=== PATIENT | female | born 1990 | race Caucasian/White ===

== ENCOUNTER 2020-12-13 09:00 | Outpatient (RCR) | payer OTHER, SELFPAY ==
--- NOTE | 2020-09-08 17:37 | PT.OIE ---
Current Diagnoses Low back pain (09/07/20) Encounter for supervision of normal , unspecified, unspecified trimester (09/07/20) Visit Care Team Role Provider Type SELENA Limon Attending Provider Non-Staff Referring Provider Specialty: Obstetrics Address: [address] [place] [address] [address], [place], [address] Email: Physical Therapy Initial Evaluation PT-OP-A Visit Information Start: 09/07/20 09:42 Freq: Status: Active Protocol: Document 09/07/20 09:45 [facility] (Rec: 09/07/20 10:03 [facility] [id number]) Out-Patient Physical Therapy Visit Information Visit Information Visit Type Initial Evaluation Visit Start Time 09:45 Visit Stop Time 10:30 Total Visit Minutes 45 Visit Number 1 Evaluation Information Evaluation Date 09/07/20 PT-OP-B Current Condition Start: 09/07/20 09:42 Freq: Status: Active Protocol: Document 09/07/20 09:45 [facility] (Rec: 09/07/20 10:03 [facility] [id number]) Current Condition History of Current Condition Onset Date with History of Current Condition Sri is a 30 year old female 38 weeks with her second baby. She has chief complaints of urinary leakage and pain with . Sri reports at 20 weeks she started experiencing pain and wanted to set up PT so that she would be able to go post . Approximately a week and a half ago started getting severe pain in her back, has been to the ER, with nerve pain down her hips, she was extremly constipated and after she finally went to the bathroom the pain was much better. She couldn't get up and her had to help her get dressed. She did seek healthcare customer service for this and it helped. Her toddler is 22 pounds and she would like better ways to do lifting activities. She has scoliosis the muscle is hypertrophied on the right. She is looking for guidance on what to do for her body. Hx of urinary leakage, she waited 6 months prior to running again . Plan is to go into labor naturally but possibly inducing at 39 weeks. She did have a prolapse after her first vaginal 21 months ago. Treatment Goals Patient/Caregiver Goals Sri would like guidance on body mechanics for ADL's and lifting to decrease strain to her body, she would like a exercise program she can do to help her scoliosis and minimize SI pain post Current Functional Impairments (Reported) Functional Limitations- ADL's Limited with activities that include bending, lifting, she is limited with her walking distance due to pain, pain changing positions PT-OP-C Subjective Start: 09/07/20 09:42 Freq: Status: Active Protocol: Document 09/07/20 09:45 [facility] (Rec: 09/08/20 17:34 [facility] [id number]) OP-PT Pain Assessment Pain Assessment Grid Paper Pain Assessment Grid Completed Yes Location pelvic pain Intensity 2 Scale Used Numeric (0 - 10) low back and SI joint Intensity 8 Scale Used Numeric (0 - 10) Description Stabbing PT-OP-J Posture/Palpation/Skin Start: 09/07/20 09:42 Freq: Status: Active Protocol: Document 09/07/20 09:45 [facility] (Rec: 09/08/20 17:34 [facility] [id number]) Posture Evaluation Comments Posture Comments pt has scoliosis with convexity to the right. She is standing with a lateral lean to the right and hypertrophy of the right paraspinals Palpation Assessment Location piriformis Palpation Location B Palpation Findings Soft Tissue Tightness,Spasm, Muscle Guarding,Tenderness PSIS B Palpation Findings Tenderness right lumbar paraspinals Palpation Findings Soft Tissue Tightness,Spasm, Muscle Guarding PT-OP-K Range of Motion Start: 09/07/20 09:44 Freq: Status: Active Protocol: Document 09/07/20 09:45 [facility] (Rec: 09/08/20 17:34 [facility] [id number]) Lumbar Spine Range of Motion Lumbar Spine Active Testing Position Standing Comments ROM modified due to pt being 38 weeks . Flexion increases pain, SB is limited and tight bilaterally worse to the right PT-OP-M Strength Start: 09/07/20 09:42 Freq: Status: Active Protocol: Document 09/07/20 09:45 [facility] (Rec: 09/08/20 17:34 [facility] [id number]) Trunk Strength Trunk Manual Muscle Testing Comments decreased trunk strength due to stretch weakness of the TA in PT-OP-Q Treatments Start: 09/07/20 09:42 Freq: Status: Active Protocol: Document 09/07/20 09:45 [facility] (Rec: 09/08/20 13:39 [facility] [email or web address]) Therapeutic Exercises Other Exercises luís pose, center and sides Reps/Minutes 1-2 reps center and sides cat cow Reps/Minutes x 10 reps quadruped TA Reps/Minutes x 10 reps Self-Care/Home Management Treatment Education Patient Education Home Exercise Program Other Education pt educated in ILU self massage to help with bowel movements PT-OP-T Assessment and Plan Start: 09/07/20 09:42 Freq: Status: Active Protocol: Document 09/07/20 09:45 [facility] (Rec: 09/08/20 13:43 [facility] [email or web address]) Physical Therapy Assessment Rehab Potential Rehabilitation Potential Excellent Evaluation Complexity Number of Personal Factors/Comorbidities 0 Number of Body Systems Impaired 1-2 Clinical Presentation at Evaluation Stable Impairments Impairments Activity Tolerance,Gait,Pain, Posture,ROM,Soft Tissue Mobility,Strength Goals SI instability with Jail Goal (LTG) Sri is educated on SI stabilization exercises and proper body mechanics to stabilize the SI LTG Duration 8 weeks Decreased lumbar ROM Data Processing Consultant Goal (LTG) Sri has full pain free ROM of the lumbar spine LTG Duration 8 weeks low back and SI pain 8/10 Short Term Goal (STG) Sri is educated in stretches and TA stabilization ex that she can do these last two weeks of her as well as wearing her SI belt to minimize pain. STG Duration 2 week Data Processing Consultant Goal (LTG) Sri has overal reduced c/o LBP and SI pain and is able to return to stabilization exercises in the post period LTG Duration 8 weeks plus Assessment Summary Assessment Sri is a 30 year old female 38 weeks with her second . She has been experiencing low back pain/SI and urinary incontinence with her . She reports after her first delivery she did have a uterine prolapse and waited 6 months before returning to running. Her toddler is 22 months old. Sri reports approximately 1 .5 weeks ago she had a new onset of severe back pain and she was laterally shifted. She was seen in the ER and it was found that she had severe constipation. Having a bowel movement helped decrease her pain and she also saw a chiropractor which helped. Today her pain levels are 7-8/ 10 in her low back and SI and 2/10 for pelvic discomfort. With examination today she is much tighter on her right low back due to her scoliosis convexity to the right. She is still slightly shifted to the right in standing. Lumbar Flexion increases her pain. Her SI was evaluated and she was aligned today however it is unlocking due to late state and stretch weakness of the transverse abdominal muscles. I did educate her today on some stretches she could due this next 1-2 weeks of , Transverse abdominal muscle bracing, body mechanics training to decrease SI strain , and we discussed wearing her SI belt for the remainder of her and . Sri would benefit from PT post and she did set up appointments for 8 weeks post . At that time we will evaluate pelvic floor strength and begin working on pelvic floor dysfunction. Physical Therapy Plan Frequency and Duration Frequency of Treatment following delivery Duration of Treatment 8 Plan of Care Start Date 09/07/20 Plan of Care End Date 11/02/20 Therapeutic Interventions Therapeutic Interventions Home Exercise Program,Manual Therapy,Neuromuscular Re- education,Patient/Caregiver Education,Self-Care/Home Management,Soft Tissue Mobilization,Therapeutic Exercises Next Visit Focus/Plan Next Note Type Re-Evaluation Next Visit Plan re-evaluation following delivery, pt has appt scheduled for 8 weeks and was told to have her 6 week doctor check up prior to starting PT . Pelvic naomi evaluation at this time if able.
--- NOTE | 2020-11-02 13:59 | PT.OTRE ---
Current Diagnoses Low back pain (11/02/20) Encounter for supervision of normal , unspecified, unspecified trimester (11/02/20) Visit Care Team Role Provider Type SELENA Limon Attending Provider Non-Staff Referring Provider Specialty: Obstetrics Address: [address] [place] [address] [address], [place], [address] Email: Physical Therapy Re-Evaluation PT-OP-A Visit Information Start: 09/07/20 09:42 Freq: Status: Active Protocol: Document 11/02/20 10:40 [facility] (Rec: 11/02/20 10:51 [facility] [id number]) Out-Patient Physical Therapy Visit Information Visit Information Visit Type Re-Evaluation Visit Start Time 10:40 Visit Stop Time 11:25 Total Visit Minutes 45 Visit Number 2 PT-OP-B Current Condition Start: 09/07/20 09:42 Freq: Status: Active Protocol: Document 09/07/20 09:45 [facility] (Rec: 09/07/20 10:03 [facility] [id number]) Current Condition History of Current Condition Onset Date with History of Current Condition Sri is a 30 year old female 38 weeks with her second baby. She has chief complaints of urinary leakage and pain with . Sri reports at 20 weeks she started experiencing pain and wanted to set up PT so that she would be able to go post . Approximately a week and a half ago started getting severe pain in her back, has been to the ER, with nerve pain down her hips, she was extremly constipated and after she finally went to the bathroom the pain was much better. She couldn't get up and her had to help her get dressed. She did seek progressive care unit registered nurse for this and it helped. Her toddler is 22 pounds and she would like better ways to do lifting activities. She has scoliosis the muscle is hypertrophied on the right. She is looking for guidance on what to do for her body. Hx of urinary leakage, she waited 6 months prior to running again . Plan is to go into labor naturally but possibly inducing at 39 weeks. She did have a prolapse after her first vaginal 21 months ago. Treatment Goals Patient/Caregiver Goals Sri would like guidance on body mechanics for ADL's and lifting to decrease strain to her body, she would like a exercise program she can do to help her scoliosis and minimize SI pain post Current Functional Impairments (Reported) Functional Limitations- ADL's Limited with activities that include bending, lifting, she is limited with her walking distance due to pain, pain changing positions PT-OP-C Subjective Start: 09/07/20 09:42 Freq: Status: Active Protocol: Document 11/02/20 10:40 [facility] (Rec: 11/02/20 10:49 [facility] [id number]) OP-PT Subjective Patient Comments Patient Comments pt returns to PT following September 15, no tearing but had no control of her pelvic floor folowing. Sri reports her labor was short at 4 hours and she didn't really have to push other than one time as baby came so fast . She wore a diaper for the first week . At 4- 5 weeks post she felt like everything was falling out and then that feeling went away. She does report feeling of heaviness. She would like exercises to strengthen things. Her back is significantly better than it was during . Also reports having a diastasis. Sri's goals are to improve her strength and support of her pelvic organs so that she can return to exercise. Patient Reported Progress Improving PT-OP-I Pelvic Floor Start: 09/07/20 09:42 Freq: Status: Active Protocol: Document 11/02/20 10:40 [facility] (Rec: 11/02/20 11:49 [facility] [id number]) Pelvic Floor Assessment Urine Pelvic Floor Surgery No Urinary Symptoms Falling Out Feeling/Heavy Prolapse Uterine Prolapse Grade 1 Perineal Descent Resting Present Contraction Ability Voluntary Contraction Absent Manual Muscle Testing Left 0 Manual Muscle Testing Right 0 Manual Muscle Testing Anterior 0 Manual Muscle Testing Posterior 0 Comments Pelvic Floor Comments unable to get a palpable contraction of the levator ani without gluteal substitution PT-OP-J Posture/Palpation/Skin Start: 09/07/20 09:42 Freq: Status: Active Protocol: Document 09/07/20 09:45 [facility] (Rec: 09/08/20 17:34 [facility] [id number]) Posture Evaluation Comments Posture Comments pt has scoliosis with convexity to the right. She is standing with a lateral lean to the right and hypertrophy of the right paraspinals Palpation Assessment Location piriformis Palpation Location B Palpation Findings Soft Tissue Tightness,Spasm, Muscle Guarding,Tenderness PSIS B Palpation Findings Tenderness right lumbar paraspinals Palpation Findings Soft Tissue Tightness,Spasm, Muscle Guarding PT-OP-K Range of Motion Start: 09/07/20 09:44 Freq: Status: Active Protocol: Document 09/07/20 09:45 [facility] (Rec: 09/08/20 17:34 [facility] [email or web address]) Lumbar Spine Range of Motion Lumbar Spine Active Testing Position Standing Comments ROM modified due to pt being 38 weeks . Flexion increases pain, SB is limited and tight bilaterally worse to the right PT-OP-M Strength Start: 09/07/20 09:42 Freq: Status: Active Protocol: Document 09/07/20 09:45 [facility] (Rec: 09/08/20 17:34 [facility] [email or web address]) Trunk Strength Trunk Manual Muscle Testing Comments decreased trunk strength due to stretch weakness of the TA in PT-OP-Q Treatments Start: 09/07/20 09:42 Freq: Status: Active Protocol: Document 11/02/20 10:40 [facility] (Rec: 11/02/20 11:49 [facility] [id number]) Therapeutic Exercises Supine Exercises ball squeeze with pelvic floor contraction Reps/Minutes x 10 reps hip abduction with theraband Reps/Minutes 3 x 10 reps TA with heel slides Reps/Minutes x 10 reps TA with marches Reps/Minutes x 10 reps pelvic floor isolations Comments with NMES pt jsut working on finding the muscle contraction at this point Sidelying Exercises clam shells Reps/Minutes 3 x 10 reps Manual Therapy Treatment Manual Techniques manual assessment of the pelvic floor strength Comments pt has difficullty facilitation a levator ani contraction without gluteal activation, able to pull up from the perineum, tenderness at the transverse perineum bilaterally Neuro Re-Education Treatment Other Activities NMES for pelvic floor activation Details NMES for pelvic floor activation Comments 10 seconds on 10 seconds off x 10 minutes level 7 PT-OP-T Assessment and Plan Start: 09/07/20 09:42 Freq: Status: Active Protocol: Document 11/02/20 10:40 [facility] (Rec: 11/02/20 11:49 [facility] [id number]) Physical Therapy Assessment Goals Improve endurance of the pelvic floor for improved support of the pelvic organs Impairment Poor endurance of the pelvic floor muscles Short Term Goal (STG) Sri is able to sustain a pelvic floor contraction x 10 seconds in supine STG Duration 4 weeks Detention Goal (LTG) Sri is able to sustain a pelvic floor contraction x 10 seconds in standing LTG Duration 8 weeks improved pelvic floor strength Impairment post pelvic floor weakness Short Term Goal (STG) Sri is able to facilitate all parts of the levator ani STG Duration 5 weeks Head Of Acquisitions Goal (LTG) Sri is able to increase her strength of the pelvic floor to a MMT of 3/5 or better to support her with dynamic strengthening exercises LTG Duration 8 weeks SI instability with Head Of Acquisitions Goal (LTG) Sri is educated on SI stabilization exercises and proper body mechanics to stabilize the SI GOAL MET LTG Duration 8 weeks Decreased lumbar ROM Head Of Acquisitions Goal (LTG) Sri has full pain free ROM of the lumbar spine Improved but there is still tightness of her lumbar paraspinals will continue addressing this LTG Duration 8 weeks low back and SI pain 8 Short Term Goal (STG) Sri is educated in stretches and TA stabilization ex that she can do these last two weeks of her as well as wearing her SI belt to minimize pain. GOAL MET STG Duration 2 week Detention Goal (LTG) Sri has overal reduced c/o LBP and SI pain and is able to return to stabilization exercises in the post period GOAL MET LTG Duration 8 weeks plus Assessment Summary Assessment Sri returns to PT at 7 weeks post for pelvic floor and core strengthening. She had a vaginal delivery on September 15 with no reports of tearing but a very fast labor and delivery. She reports initially she had no bladder control but this is getting better. She describes pelvic heaviness. Sri has not yet returned to her exercise program and she seeks guidance on progression of exercises. With evaluation today there is a 2 finger width diastasis proximal to the umbilicus. With Transverse abdominal cueing this improves. Sri is able to facilitate a perineum lift with cueing. There is perineal gapping present. With levator ani assessment Sri has difficulty with any recruitment of the levator ani without gluteal substitution. I was unable to facilitate a contraction so it was decided to do a trial of Neuromuscular electrical stimulation to help with facilitation. This helped and Sri left her appointment today with better awareness of a pelvic floor contraction. She may be a good candidate for a home rental of NMES. Treatment will focus on inner core stabilization and progression of exercises for the pelvic floor. Her low back is not painful like it was during however she is tight in her pelvic floor so stretches for the low back will be included as well . Physical Therapy Plan Frequency and Duration Frequency of Treatment 1x/Week Duration of Treatment 8 Plan of Care Start Date 11/02/20 Plan of Care End Date 12/28/20 Therapeutic Interventions Therapeutic Interventions Home Exercise Program,Manual Therapy,Neuromuscular Re- education,Patient/Caregiver Education,Self-Care/Home Management,Soft Tissue Mobilization,Therapeutic Exercises Modalities Biofeedback Next Visit Focus/Plan Next Note Type Treatment Note Next Visit Plan pelvic floor and transverse abdominal stabilization, stretches for the low back, NMES for pelvic floor recruitment, EMG biofeedback
--- NOTE | 2020-11-02 13:59 | PT.OPPOC ---
Physical, Occupational & Speech Therapy At [facility] Current Diagnoses Low back pain (11/02/20) Encounter for supervision of normal , unspecified, unspecified trimester (11/02/20) Visit Care Team Role Provider Type SELENA Limon Attending Provider Non-Staff Referring Provider Specialty: Obstetrics Address: [address] [place] [address], [place], [address] Email: Plan Of Care PT-OP-T Assessment and Plan Start: 09/07/20 09:42 Freq: Status: Active Protocol: Document 11/02/20 10:40 [facility] (Rec: 11/02/20 11:49 [facility] [id number]) Physical Therapy Assessment Goals Improve endurance of the pelvic floor for improved support of the pelvic organs Impairment Poor endurance of the pelvic floor muscles Short Term Goal (STG) Sri is able to sustain a pelvic floor contraction x 10 seconds in supine STG Duration 4 weeks Senior Care Goal (LTG) Sri is able to sustain a pelvic floor contraction x 10 seconds in standing LTG Duration 8 weeks improved pelvic floor strength Impairment post pelvic floor weakness Short Term Goal (STG) Sri is able to facilitate all parts of the levator ani STG Duration 5 weeks Senior Care Goal (LTG) Sri is able to increase her strength of the pelvic floor to a MMT of 3/5 or better to support her with dynamic strengthening exercises LTG Duration 8 weeks SI instability with Senior Care Goal (LTG) Sri is educated on SI stabilization exercises and proper body mechanics to stabilize the SI GOAL MET LTG Duration 8 weeks Decreased lumbar ROM Portfolio Manager Goal (LTG) Sri has full pain free ROM of the lumbar spine Improved but there is still tightness of her lumbar paraspinals will continue addressing this LTG Duration 8 weeks low back and SI pain 8/10 Short Term Goal (STG) Sri is educated in stretches and TA stabilization ex that she can do these last two weeks of her as well as wearing her SI belt to minimize pain. GOAL MET STG Duration 2 week Senior Care Goal (LTG) Sri has overall reduced c/o LBP and SI pain and is able to return to stabilization exercises in the post period GOAL MET LTG Duration 8 weeks plus Assessment Summary Assessment Sri returns to PT at 7 weeks post for pelvic floor and core strengthening. She had a vaginal delivery on September 15 with no reports of tearing but a very fast labor and delivery. She reports initially she had no bladder control but this is getting better. She describes pelvic heaviness. Sri has not yet returned to her exercise program and she seeks guidance on progression of exercises. With evaluation today there is a 2 finger width diastasis proximal to the umbilicus. With Transverse abdominal cueing this improves. Sri is able to facilitate a perineum lift with cueing. There is perineal gapping present. With levator ani assessment Sri has difficulty with any recruitment of the levator ani without gluteal substitution. I was unable to facilitate a contraction so it was decided to do a trial of Neuromuscular electrical stimulation to help with facilitation. This helped and Sri left her appointment today with better awareness of a pelvic floor contraction. She may be a good candidate for a home rental of NMES. Treatment will focus on inner core stabilization and progression of exercises for the pelvic floor. Her low back is not painful like it was during however she is tight in her pelvic floor so stretches for the low back will be included as well . Physical Therapy Plan Frequency and Duration Frequency of Treatment 1x/Week Duration of Treatment 8 Plan of Care Start Date 11/02/20 Plan of Care End Date 12/28/20 Therapeutic Interventions Therapeutic Interventions Home Exercise Program,Manual Therapy,Neuromuscular Re- education,Patient/Caregiver Education,Self-Care/Home Management,Soft Tissue Mobilization,Therapeutic Exercises Modalities Biofeedback Next Visit Focus/Plan Next Note Type Treatment Note Next Visit Plan pelvic floor and transverse abdominal stabilization, stretches for the low back, NMES for pelvic floor recruitment, EMG biofeedback Plan of Care Dates Plan of Care Start Date 11/02/20 Plan of Care End Date 12/28/20 Electronically Signed by: Lillian Bass, PT 11/02/20 [id number] Please Sign and Return: I have reviewed this Plan of Care and certify that the skilled therapy services above are required to meet the patient?s needs. Physician Signature Date Printed Name and Credentials Clinical Instructor Signature Printed Name and Credentials
--- NOTE | 2020-11-10 17:53 | PT.OTN ---
Current Diagnoses Low back pain (11/10/20) Encounter for supervision of normal , unspecified, unspecified trimester (11/10/20) Physical Therapy Treatment Note PT-OP-A Visit Information Start: 09/07/20 09:42 Freq: Status: Active Protocol: Document 11/10/20 09:51 [facility] (Rec: 11/10/20 10:42 [facility] [id number]) Out-Patient Physical Therapy Visit Information Visit Information Visit Type Treatment Note Visit Start Time 09:50 Visit Stop Time 10:30 Total Visit Minutes 40 Visit Number 3 PT-OP-B Current Condition Start: 09/07/20 09:42 Freq: Status: Active Protocol: Document 09/07/20 09:45 [facility] (Rec: 09/07/20 10:03 [facility] [id number]) Current Condition History of Current Condition Onset Date with History of Current Condition Sri is a 30 year old female 38 weeks with her second baby. She has chief complaints of urinary leakage and pain with . Sri reports at 20 weeks she started experiencing pain and wanted to set up PT so that she would be able to go post . Approximately a week and a half ago started getting severe pain in her back, has been to the ER, with nerve pain down her hips, she was extremly constipated and after she finally went to the bathroom the pain was much better. She couldn't get up and her had to help her get dressed. She did seek care nurse rn for this and it helped. Her toddler is 22 pounds and she would like better ways to do lifting activities. She has scoliosis the muscle is hypertrophied on the right. She is looking for guidance on what to do for her body. Hx of urinary leakage, she waited 6 months prior to running again . Plan is to go into labor naturally but possibly inducing at 39 weeks. She did have a prolapse after her first vaginal 21 months ago. Treatment Goals Patient/Caregiver Goals Sri would like guidance on body mechanics for ADL's and lifting to decrease strain to her body, she would like a exercise program she can do to help her scoliosis and minimize SI pain post Current Functional Impairments (Reported) Functional Limitations- ADL's Limited with activities that include bending, lifting, she is limited with her walking distance due to pain, pain changing positions PT-OP-C Subjective Start: 09/07/20 09:42 Freq: Status: Active Protocol: Document 11/10/20 09:51 [facility] (Rec: 11/10/20 10:42 [facility] [id number]) OP-PT Subjective Patient Comments Patient Comments pt reports she has been doing the exercises but notes it hard to control to not use her gluteals, she is able to feel her pelvic floor more now PT-OP-I Pelvic Floor Start: 09/07/20 09:42 Freq: Status: Active Protocol: Document 11/02/20 10:40 [facility] (Rec: 11/02/20 11:49 [facility] [id number]) Pelvic Floor Assessment Urine Pelvic Floor Surgery No Urinary Symptoms Falling Out Feeling/Heavy Prolapse Uterine Prolapse Grade 1 Perineal Descent Resting Present Contraction Ability Voluntary Contraction Absent Manual Muscle Testing Left 0 Manual Muscle Testing Right 0 Manual Muscle Testing Anterior 0 Manual Muscle Testing Posterior 0 Comments Pelvic Floor Comments unable to get a palpable contraction of the levator ani without gluteal substitution PT-OP-J Posture/Palpation/Skin Start: 09/07/20 09:42 Freq: Status: Active Protocol: Document 09/07/20 09:45 [facility] (Rec: 09/08/20 17:34 [facility] [id number]) Posture Evaluation Comments Posture Comments pt has scoliosis with convexity to the right. She is standing with a lateral lean to the right and hypertrophy of the right paraspinals Palpation Assessment Location piriformis Palpation Location B Palpation Findings Soft Tissue Tightness,Spasm, Muscle Guarding,Tenderness PSIS B Palpation Findings Tenderness right lumbar paraspinals Palpation Findings Soft Tissue Tightness,Spasm, Muscle Guarding PT-OP-K Range of Motion Start: 09/07/20 09:44 Freq: Status: Active Protocol: Document 09/07/20 09:45 [facility] (Rec: 09/08/20 17:34 [facility] [id number]) Lumbar Spine Range of Motion Lumbar Spine Active Testing Position Standing Comments ROM modified due to pt being 38 weeks . Flexion increases pain, SB is limited and tight bilaterally worse to the right PT-OP-M Strength Start: 09/07/20 09:42 Freq: Status: Active Protocol: Document 09/07/20 09:45 [facility] (Rec: 09/08/20 17:34 [facility] [id number]) Trunk Strength Trunk Manual Muscle Testing Comments decreased trunk strength due to stretch weakness of the TA in PT-OP-Q Treatments Start: 09/07/20 09:42 Freq: Status: Active Protocol: Document 11/10/20 09:51 [facility] (Rec: 11/10/20 10:42 [facility] [id number]) Therapeutic Exercises Supine Exercises piriformis stretch Reps/Minutes hold 1-2 min bilaterally ball squeeze with pelvic floor contraction Reps/Minutes x 10 reps TA with heel slides Reps/Minutes x 10 reps pelvic floor isolations Reps/Minutes 10 seconds on 10 seconds off Comments 17.9 average tends to use gluteals Neuro Re-Education Treatment Other Activities NMES for pelvic floor activation Details NMES for pelvic floor activation Comments 10 seconds on 10 seconds off x 10 minutes level 12 PT-OP-T Assessment and Plan Start: 09/07/20 09:42 Freq: Status: Active Protocol: Document 11/10/20 09:45 [facility] (Rec: 11/10/20 17:53 [facility] [id number]) Physical Therapy Assessment Assessment Summary Assessment Sri has improved sensation today for pelvic floor contraction. We initiated pelvic floor contractions in supine today with EMG biofeedback and she did much better this week. Added in piriformis stretch to help with hip tightness and continued with NMES Physical Therapy Plan Frequency and Duration Frequency of Treatment 1x/Week Duration of Treatment 8 Plan of Care Start Date 11/02/20 Plan of Care End Date 12/28/20 Next Visit Focus/Plan Next Note Type Treatment Note Next Visit Plan pelvic floor and transverse abdominal stabilization, stretches for the low back, NMES for pelvic floor recruitment, EMG biofeedback
--- NOTE | 2020-11-15 11:21 | PT.OTN ---
Current Diagnoses Low back pain (11/15/20) Encounter for supervision of normal , unspecified, unspecified trimester (11/15/20) Physical Therapy Treatment Note PT-OP-A Visit Information Start: 09/07/20 09:42 Freq: Status: Active Protocol: Document 11/15/20 10:35 [facility] (Rec: 11/15/20 11:21 [facility] [id number]) Out-Patient Physical Therapy Visit Information Visit Information Visit Type Treatment Note Visit Start Time 10:35 Visit Stop Time 11:20 Total Visit Minutes 45 Visit Number 4 PT-OP-B Current Condition Start: 09/07/20 09:42 Freq: Status: Active Protocol: Document 09/07/20 09:45 [facility] (Rec: 09/07/20 10:03 [facility] [id number]) Current Condition History of Current Condition Onset Date with History of Current Condition Sri is a 30 year old female 38 weeks with her second baby. She has chief complaints of urinary leakage and pain with . Sri reports at 20 weeks she started experiencing pain and wanted to set up PT so that she would be able to go post . Approximately a week and a half ago started getting severe pain in her back, has been to the ER, with nerve pain down her hips, she was extremly constipated and after she finally went to the bathroom the pain was much better. She couldn't get up and her had to help her get dressed. She did seek skin care technician for this and it helped. Her toddler is 22 pounds and she would like better ways to do lifting activities. She has scoliosis the muscle is hypertrophied on the right. She is looking for guidance on what to do for her body. Hx of urinary leakage, she waited 6 months prior to running again . Plan is to go into labor naturally but possibly inducing at 39 weeks. She did have a prolapse after her first vaginal 21 months ago. Treatment Goals Patient/Caregiver Goals Sri would like guidance on body mechanics for ADL's and lifting to decrease strain to her body, she would like a exercise program she can do to help her scoliosis and minimize SI pain post Current Functional Impairments (Reported) Functional Limitations- ADL's Limited with activities that include bending, lifting, she is limited with her walking distance due to pain, pain changing positions PT-OP-C Subjective Start: 09/07/20 09:42 Freq: Status: Active Protocol: Document 11/15/20 10:35 [facility] (Rec: 11/15/20 11:21 [facility] [id number]) OP-PT Subjective Patient Comments Patient Comments pt notes her pelvic floor is improving, she did throw out her back picking up her kiddo. SHe feels like it is her scoliosis. SHe was adjusted yesterday and that helped. She also did a lot of yoga and that helped. SHe had to go to the bathroom really bad and she squeezed and she could hold it. PT-OP-I Pelvic Floor Start: 09/07/20 09:42 Freq: Status: Active Protocol: Document 11/02/20 10:40 [facility] (Rec: 11/02/20 11:49 [facility] [id number]) Pelvic Floor Assessment Urine Pelvic Floor Surgery No Urinary Symptoms Falling Out Feeling/Heavy Prolapse Uterine Prolapse Grade 1 Perineal Descent Resting Present Contraction Ability Voluntary Contraction Absent Manual Muscle Testing Left 0 Manual Muscle Testing Right 0 Manual Muscle Testing Anterior 0 Manual Muscle Testing Posterior 0 Comments Pelvic Floor Comments unable to get a palpable contraction of the levator ani without gluteal substitution PT-OP-J Posture/Palpation/Skin Start: 09/07/20 09:42 Freq: Status: Active Protocol: Document 09/07/20 09:45 [facility] (Rec: 09/08/20 17:34 [facility] [id number]) Posture Evaluation Comments Posture Comments pt has scoliosis with convexity to the right. She is standing with a lateral lean to the right and hypertrophy of the right paraspinals Palpation Assessment Location piriformis Palpation Location B Palpation Findings Soft Tissue Tightness,Spasm, Muscle Guarding,Tenderness PSIS B Palpation Findings Tenderness right lumbar paraspinals Palpation Findings Soft Tissue Tightness,Spasm, Muscle Guarding PT-OP-K Range of Motion Start: 09/07/20 09:44 Freq: Status: Active Protocol: Document 09/07/20 09:45 [facility] (Rec: 09/08/20 17:34 [facility] [email or web address]) Lumbar Spine Range of Motion Lumbar Spine Active Testing Position Standing Comments ROM modified due to pt being 38 weeks . Flexion increases pain, SB is limited and tight bilaterally worse to the right PT-OP-M Strength Start: 09/07/20 09:42 Freq: Status: Active Protocol: Document 09/07/20 09:45 [facility] (Rec: 09/08/20 17:34 [facility] [id number]) Trunk Strength Trunk Manual Muscle Testing Comments decreased trunk strength due to stretch weakness of the TA in PT-OP-Q Treatments Start: 09/07/20 09:42 Freq: Status: Active Protocol: Document 11/15/20 10:35 [facility] (Rec: 11/15/20 11:21 [facility] [id number]) Therapeutic Exercises Supine Exercises TA level 1 b Reps/Minutes x 10 reps piriformis stretch Reps/Minutes hold 1-2 min bilaterally ball squeeze with pelvic floor contraction Reps/Minutes x 10 reps TA with heel slides Reps/Minutes x 10 reps TA with marches Reps/Minutes x 10 reps pelvic floor isolations Comments 20 average , 38.7 Neuro Re-Education Treatment Other Activities NMES for pelvic floor activation Details NMES for pelvic floor activation Comments 10 seconds on 10 seconds off x 10 minutes level 15, able to feel more of the front. PT-OP-T Assessment and Plan Start: 09/07/20 09:42 Freq: Status: Active Protocol: Document 11/15/20 10:35 [facility] (Rec: 11/15/20 11:21 [facility] [id number]) Physical Therapy Assessment Assessment Summary Assessment able to feel more of the anterior pelvic floor today with NMES Difficulty relaxing today most likely due to her back guarding. Physical Therapy Plan Frequency and Duration Frequency of Treatment 1x/Week Duration of Treatment 8 Plan of Care Start Date 11/02/20 Plan of Care End Date 12/28/20 Next Visit Focus/Plan Next Note Type Treatment Note Next Visit Plan pelvic floor and transverse abdominal stabilization, stretches for the low back, NMES for pelvic floor recruitment, EMG biofeedback
--- NOTE | 2020-12-06 11:58 | PT.OTN ---
Current Diagnoses Low back pain (12/06/20) Encounter for supervision of normal , unspecified, unspecified trimester (12/06/20) Physical Therapy Treatment Note PT-OP-A Visit Information Start: 09/07/20 09:42 Freq: Status: Active Protocol: Document 12/06/20 09:01 [facility] (Rec: 12/06/20 09:40 [facility] [id number]) Out-Patient Physical Therapy Visit Information Visit Information Visit Type Treatment Note Visit Start Time 09:00 Visit Stop Time 09:45 Total Visit Minutes 45 Visit Number 5 PT-OP-B Current Condition Start: 09/07/20 09:42 Freq: Status: Active Protocol: Document 09/07/20 09:45 [facility] (Rec: 09/07/20 10:03 [facility] [id number]) Current Condition History of Current Condition Onset Date with History of Current Condition Sri is a 30 year old female 38 weeks with her second baby. She has chief complaints of urinary leakage and pain with . Sri reports at 20 weeks she started experiencing pain and wanted to set up PT so that she would be able to go post . Approximately a week and a half ago started getting severe pain in her back, has been to the ER, with nerve pain down her hips, she was extremly constipated and after she finally went to the bathroom the pain was much better. She couldn't get up and her had to help her get dressed. She did seek certified social workers in health care for this and it helped. Her toddler is 22 pounds and she would like better ways to do lifting activities. She has scoliosis the muscle is hypertrophied on the right. She is looking for guidance on what to do for her body. Hx of urinary leakage, she waited 6 months prior to running again . Plan is to go into labor naturally but possibly inducing at 39 weeks. She did have a prolapse after her first vaginal 21 months ago. Treatment Goals Patient/Caregiver Goals Sri would like guidance on body mechanics for ADL's and lifting to decrease strain to her body, she would like a exercise program she can do to help her scoliosis and minimize SI pain post Current Functional Impairments (Reported) Functional Limitations- ADL's Limited with activities that include bending, lifting, she is limited with her walking distance due to pain, pain changing positions PT-OP-C Subjective Start: 09/07/20 09:42 Freq: Status: Active Protocol: Document 12/06/20 09:01 [facility] (Rec: 12/06/20 09:40 [facility] [id number]) OP-PT Subjective Patient Comments Patient Comments pt has been stretching every night with her feet up the wall. She has been on 2 one mile runs and hasn't had any leakage. Clam shells help alot and she feels like she is doing better Patient Reported Progress Improving PT-OP-I Pelvic Floor Start: 09/07/20 09:42 Freq: Status: Active Protocol: Document 11/02/20 10:40 [facility] (Rec: 11/02/20 11:49 [facility] [id number]) Pelvic Floor Assessment Urine Pelvic Floor Surgery No Urinary Symptoms Falling Out Feeling/Heavy Prolapse Uterine Prolapse Grade 1 Perineal Descent Resting Present Contraction Ability Voluntary Contraction Absent Manual Muscle Testing Left 0 Manual Muscle Testing Right 0 Manual Muscle Testing Anterior 0 Manual Muscle Testing Posterior 0 Comments Pelvic Floor Comments unable to get a palpable contraction of the levator ani without gluteal substitution PT-OP-J Posture/Palpation/Skin Start: 09/07/20 09:42 Freq: Status: Active Protocol: Document 09/07/20 09:45 [facility] (Rec: 09/08/20 17:34 [facility] [email or web address]) Posture Evaluation Comments Posture Comments pt has scoliosis with convexity to the right. She is standing with a lateral lean to the right and hypertrophy of the right paraspinals Palpation Assessment Location piriformis Palpation Location B Palpation Findings Soft Tissue Tightness,Spasm, Muscle Guarding,Tenderness PSIS B Palpation Findings Tenderness right lumbar paraspinals Palpation Findings Soft Tissue Tightness,Spasm, Muscle Guarding PT-OP-K Range of Motion Start: 09/07/20 09:44 Freq: Status: Active Protocol: Document 09/07/20 09:45 [facility] (Rec: 09/08/20 17:34 [facility] [email or web address]) Lumbar Spine Range of Motion Lumbar Spine Active Testing Position Standing Comments ROM modified due to pt being 38 weeks . Flexion increases pain, SB is limited and tight bilaterally worse to the right PT-OP-M Strength Start: 09/07/20 09:42 Freq: Status: Active Protocol: Document 09/07/20 09:45 [facility] (Rec: 09/08/20 17:34 [facility] [id number]) Trunk Strength Trunk Manual Muscle Testing Comments decreased trunk strength due to stretch weakness of the TA in PT-OP-Q Treatments Start: 09/07/20 09:42 Freq: Status: Active Protocol: Document 12/06/20 09:01 [facility] (Rec: 12/06/20 09:40 [facility] [id number]) Therapeutic Exercises Supine Exercises quick pelvic floor contractions Reps/Minutes 10 reps 2 second hold time and 2 second relaxation pelvic floor isolations Reps/Minutes x 10 reps 10 second hold time and 10 second relax time Comments 19 av 37.5 max Sidelying Exercises modified side plank Side bilateral Comments modified side plank with wall for support pt did not fully lift up Other Exercises 1/2 foam roll stretch Reps/Minutes 4 min on 1/2 roll with roll vertical quadruped opp Arm and opp leg Reps/Minutes x 5 reps cat cow Reps/Minutes x 10 reps quadruped TA Reps/Minutes x 5 reps PT-OP-T Assessment and Plan Start: 09/07/20 09:42 Freq: Status: Active Protocol: Document 12/06/20 09:00 [facility] (Rec: 12/06/20 11:58 [facility] [id number]) Physical Therapy Assessment Assessment Summary Assessment pt doing much better overall finding her pelvic floor and being able to feel the contraction. She is also doing better with her low back and has been working on stretching daily. I did start her with both a foam roll stretch and modified side planks against the wall to help with stabilization with her scoliosis. She tolerated this well Physical Therapy Plan Frequency and Duration Frequency of Treatment 1x/Week Duration of Treatment 8 Plan of Care Start Date 11/02/20 Plan of Care End Date 12/28/20 Therapeutic Interventions Therapeutic Interventions Home Exercise Program,Manual Therapy,Neuromuscular Re- education,Patient/Caregiver Education,Self-Care/Home Management,Soft Tissue Mobilization,Therapeutic Exercises Modalities Biofeedback Next Visit Focus/Plan Next Note Type Treatment Note Next Visit Plan continue PT x 1 additional visit reviewing all established exercises
--- NOTE | 2020-12-13 09:54 | PT.OTN ---
Current Diagnoses Low back pain (12/13/20) Encounter for supervision of normal , unspecified, unspecified trimester (12/13/20) Physical Therapy Treatment Note PT-OP-A Visit Information Start: 09/07/20 09:42 Freq: Status: Active Protocol: Document 12/13/20 09:02 [facility] (Rec: 12/13/20 09:44 [facility] [id number]) Out-Patient Physical Therapy Visit Information Visit Information Visit Type Treatment Note Visit Start Time 09:03 Visit Stop Time 10:30 Total Visit Minutes 42 Visit Number 6 PT-OP-B Current Condition Start: 09/07/20 09:42 Freq: Status: Active Protocol: Document 09/07/20 09:45 [facility] (Rec: 09/07/20 10:03 [facility] [id number]) Current Condition History of Current Condition Onset Date with History of Current Condition Sri is a 30 year old female 38 weeks with her second baby. She has chief complaints of urinary leakage and pain with . Sri reports at 20 weeks she started experiencing pain and wanted to set up PT so that she would be able to go post . Approximately a week and a half ago started getting severe pain in her back, has been to the ER, with nerve pain down her hips, she was extremly constipated and after she finally went to the bathroom the pain was much better. She couldn't get up and her had to help her get dressed. She did seek reservoir caretaker for this and it helped. Her toddler is 22 pounds and she would like better ways to do lifting activities. She has scoliosis the muscle is hypertrophied on the right. She is looking for guidance on what to do for her body. Hx of urinary leakage, she waited 6 months prior to running again . Plan is to go into labor naturally but possibly inducing at 39 weeks. She did have a prolapse after her first vaginal 21 months ago. Treatment Goals Patient/Caregiver Goals Sri would like guidance on body mechanics for ADL's and lifting to decrease strain to her body, she would like a exercise program she can do to help her scoliosis and minimize SI pain post Current Functional Impairments (Reported) Functional Limitations- ADL's Limited with activities that include bending, lifting, she is limited with her walking distance due to pain, pain changing positions PT-OP-C Subjective Start: 09/07/20 09:42 Freq: Status: Active Protocol: Document 12/13/20 09:02 [facility] (Rec: 12/13/20 09:44 [facility] [id number]) OP-PT Subjective Patient Comments Patient Comments pt notes she has been able to run and can touch her toes. She feels comfortale with today being her last visit. She reports she liked the side planks and she hasn't been feeling the popping in her back. PT-OP-I Pelvic Floor Start: 09/07/20 09:42 Freq: Status: Active Protocol: Document 11/02/20 10:40 [facility] (Rec: 11/02/20 11:49 [facility] [id number]) Pelvic Floor Assessment Urine Pelvic Floor Surgery No Urinary Symptoms Falling Out Feeling/Heavy Prolapse Uterine Prolapse Grade 1 Perineal Descent Resting Present Contraction Ability Voluntary Contraction Absent Manual Muscle Testing Left 0 Manual Muscle Testing Right 0 Manual Muscle Testing Anterior 0 Manual Muscle Testing Posterior 0 Comments Pelvic Floor Comments unable to get a palpable contraction of the levator ani without gluteal substitution PT-OP-J Posture/Palpation/Skin Start: 09/07/20 09:42 Freq: Status: Active Protocol: Document 09/07/20 09:45 [facility] (Rec: 09/08/20 17:34 [facility] [id number]) Posture Evaluation Comments Posture Comments pt has scoliosis with convexity to the right. She is standing with a lateral lean to the right and hypertrophy of the right paraspinals Palpation Assessment Location piriformis Palpation Location B Palpation Findings Soft Tissue Tightness,Spasm, Muscle Guarding,Tenderness PSIS B Palpation Findings Tenderness right lumbar paraspinals Palpation Findings Soft Tissue Tightness,Spasm, Muscle Guarding PT-OP-K Range of Motion Start: 09/07/20 09:44 Freq: Status: Active Protocol: Document 09/07/20 09:45 [facility] (Rec: 09/08/20 17:34 [facility] [id number]) Lumbar Spine Range of Motion Lumbar Spine Active Testing Position Standing Comments ROM modified due to pt being 38 weeks . Flexion increases pain, SB is limited and tight bilaterally worse to the right PT-OP-M Strength Start: 09/07/20 09:42 Freq: Status: Active Protocol: Document 09/07/20 09:45 [facility] (Rec: 09/08/20 17:34 [facility] [id number]) Trunk Strength Trunk Manual Muscle Testing Comments decreased trunk strength due to stretch weakness of the TA in PT-OP-Q Treatments Start: 09/07/20 09:42 Freq: Status: Active Protocol: Document 12/13/20 09:02 [facility] (Rec: 12/13/20 09:44 [facility] [id number]) Therapeutic Exercises Supine Exercises templates for eccentric control Reps/Minutes x 5 minutes quick pelvic floor contractions Reps/Minutes 10 reps 2 second hold time and 2 second relaxation ball squeeze with pelvic floor contraction Reps/Minutes x 10 reps pelvic floor isolations Reps/Minutes x 10 reps Comments 15.6 uv 35.7 uv Other Exercises 1/2 foam roll stretch Comments pt purchased yoga bolster for home stretch Neuro Re-Education Treatment Other Activities NMES for pelvic floor activation Details NMES for the levator ani Comments 5 min at level 12 PT-OP-T Assessment and Plan Start: 09/07/20 09:42 Freq: Status: Active Protocol: Document 12/13/20 09:02 [facility] (Rec: 12/13/20 09:44 [facility] [id number]) Physical Therapy Assessment Goals Improve endurance of the pelvic floor for improved support of the pelvic organs Impairment Poor endurance of the pelvic floor muscles Short Term Goal (STG) Sri is able to sustain a pelvic floor contraction x 10 seconds in supine 12/13/20 GOAL MET STG Duration 4 weeks [employer] Goal (LTG) Sri is able to sustain a pelvic floor contraction x 10 seconds in standing 12/13/20 Pt to begin practicing this at home LTG Duration 8 weeks improved pelvic floor strength Impairment post pelvic floor weakness Short Term Goal (STG) Sri is able to facilitate all parts of the levator ani 12/13/20 Goal met STG Duration 5 weeks Care Home Goal (LTG) Sri is able to increase her strength of the pelvic floor to a MMT of 3/5 or better to support her with dynamic strengthening exercises 12/13/20 Goal met LTG Duration 8 weeks SI instability with Care Home Goal (LTG) Sri is educated on SI stabilization exercises and proper body mechanics to stabilize the SI GOAL MET LTG Duration 8 weeks Decreased lumbar ROM [employer] Goal (LTG) Sri has full pain free ROM of the lumbar spine Goal met LTG Duration 8 weeks low back and SI pain 11/22 Short Term Goal (STG) Sri is educated in stretches and TA stabilization ex that she can do these last two weeks of her as well as wearing her SI belt to minimize pain. GOAL MET STG Duration 2 week [employer] Goal (LTG) Sri has overal reduced c/o LBP and SI pain and is able to return to stabilization exercises in the post period 12/13/20 Goal MEt GOAL MET LTG Duration 8 weeks plus Assessment Summary Assessment Sri has shown much improvement with both the strength of her pelvic floor as well as improving lumbar ROM and flexibility. She is no longer complaining of low back pain and is feeling independent with her HEP. She will be discharged from PT at this time. Physical Therapy Plan Discharge Physical Therapy Discharge Reasons Goals Met
== END 2020-12-14 13:58 | disposition home or self-care (01) ==
LOC: PHYS 09:00
PROVIDERS: Referring Provider Advanced Practice Midwife; Visit Provider Advanced Practice Midwife
DX: Z34.90 Encounter for supervision of normal pregnancy, unspecified, unspecified trimester (principal); M54.5 Low back pain
CPT/HCPCS: 97110; 97112; 97161